=== PATIENT | female | born 2000 | race Caucasian/White ===

== ENCOUNTER → 2025-03-11 | Outpatient (CLI) | payer OTHER, SELFPAY ==
[2025-03-13 16:09] LABS: Immunoglobulin A 147 mg/dL (87-352); t-Transglutaminase IgA <2 U/mL (0-3)
== END | disposition home or self-care (01) ==
LOC: LAB 16:41
PROVIDERS: PCP Family Medicine; Referring Provider Nurse Practitioner Acute Care; Visit Provider Nurse Practitioner Acute Care
DX: R19.7 Diarrhea, unspecified (principal); K21.9 Gastro-esophageal reflux disease without esophagitis; R10.11 Right upper quadrant pain; R11.0 Nausea
CPT/HCPCS: 36415; 82784; 83516

== ENCOUNTER 2025-03-17 11:20 | Day surgery (SDC) | payer OTHER, SELFPAY ==
[2025-03-17] VITALS (7 sets, daily range): BP systolic 111–141; BP diastolic 65–99; PULSE 70–97; RESP 16–18; TEMP 36.3–36.6; O2SAT 94–100; BMI 48.6
--- NOTE | 2025-03-17 11:53 | HP.PCM_ITS ---
HPI - General General Date of Admission: 03/17/25 Date of Service: 03/17/25 HPI Narrative AUDIE NDIAYE, is a 24 F who presents for the evaluation of nausea and RUQ pain, diarrhea - upper abdominal pain, RUQ - nausea all the time - 100 days out form her wedding - for the past year, progressively getting worse, started with stomach discomfort, never really revolved around food - wakes in the morning with nausea, denies any emesis - RUQ pain be sharp, can radiate down - still has her GB - phenergan PRN - pepto all the time 2-6 pills a day - famotidine 20mg BID PRN - Omeprazole 40mg QD x2 months - no improvement - denies any weight loss, reports she has had weight gain - denies any dietary changes - MOM with GB disease - she has a BM multiple times a day - stools range from watery 5-6x a day to formed for the past year - denies any bleeding - urgency - denies any fecal incontinence - she was in [place] December 2023 - reports symptoms were much worse post - every one was hunched over diarrhea the last day - reports everyone elses symptoms cleared but hers did not - overall her symptoms are way better than what they were but has never subsided - denies any family h/o crohn's or colitis - denies any family h/o celiac disease [facility] Medical History Depression Heartburn Gastric reflux Former smoker Vertigo Anemia Home Medications ?Medication ?Instructions ?Recorded ?Last Taken ?Type famotidine 20 mg tablet 20 mg PO BID PRN gerd Unknown History norethindrone 1 mg-ethinyl 1 tab PO QDAY 03/10/25 Unkn own History estradiol 20 mcg (21)-iron 75 mg (7) tablet (Uma Fe 11/09 ()) promethazine 25 mg tablet 25 mg PO Q4-6H PRN nausea an d 03/10/25 Unknown History vomiting buspirone 5 mg tablet 5 mg PO DAILY 03/11/25 Unkno wn History rabeprazole 20 mg tablet,delayed 20 mg PO QDAY #90 tab s 03/11/25 Unknown Rx release Allergy/AdvReac Type Severity Reaction Status Date / Time Penicillins Allergy Severe Anaphylaxis Verified 03/12/25 14:57 Family History Mother Anemia Depression Social History Smoking Status: Former smoker alcohol intake: never substance use type: does not use caffeine: No what type of physical activity do you participate in: none ROS Constitutional Constitutional: Denies fatigue, fever(s), poor appetite, weight gain or weight loss Gastrointestinal Gastrointestinal: Denies belching, bloating, change in bowel habits, change in stool character, chewing difficulty, coffee ground emesis, constipation, cramping, diarrhea, dyspepsia, dysphagia, early satiety, excessive flatus, fecal incontinence, heartburn, hematemesis, hematochezia, hemorrhoids, loose stools, melena, nausea, odynophagia, rectal bleeding, tenesmus, vomiting or weight changes Physical Exam Const alert, oriented x3, no apparent distress and healthy appearing General Appearance: cooperative GI normal to inspection, nondistended, normoactive bowel sounds, soft to palpation, non-tender and non-distended Percussion: normal to percussion Rectal Exam: deferred Assessment & Plan Assessment/Plan (1) Nausea: (2) RUQ pain: (3) Diarrhea: (4) GERD (gastroesophageal reflux disease): PLAN: ROS Const Constitutional: Positive for fatigue and weight change (gain); No fever(s) ENT ENT: No difficulty swallowing Gastro GI: Positive for abdominal pain, change in bowel habits, diarrhea, heartburn and nausea/dyspepsia; No belching, bloating, change in stool character, coffee ground emesis, constipation, cramping, difficulty swallowing, feeling full early, excessive flatus, incontinent of stools, Vomiting blood/hematemesis, Blood in stool, loose stools, Black,tarry stools, pain with swallowing, vomiting or other Musc Musculoskeletal: No joint pain Skin Skin: No yellowing of the eye or itchy eyes Neuro Neurology: Positive for dizziness Psych Psychiatric: Positive for anxiety, Positive for depression, Positive for Compulsive Behavior and Positive for obsessions/compulsions Endo Endocrine: Positive for fatigue and weight change (gain) Aller/Imm Allergy/Immunologic: No itchy eyes Pedro Luis/Lymp Hematologic/Lymphatic: No easy bleeding or easy bruising Exam Const General: cooperative, healthy appearing, no acute distress and well developed Nutritional Appearance: well nourished and obese morbidly obese Orientation: alert and oriented x3 HENMT Head: normocephalic Ears: hearing grossly normal bilaterally Mouth: moist mucous membranes Teeth and gingiva: dentition normal Eyes Conjunctivae: conjunctivae normal Sclera: sclerae normal Neck Neck: normal visual inspection, full ROM and trachea midline Resp Effort & Inspection: normal respiratory effort, able to speak in complete sentences and symmetric chest movement Auscultation: Bilateral: Clear to Auscultation Cardio Palpation: normal PMI Rate: regular rate Rhythm: regular rhythm Heart Sounds: S1 normal and S2 normal GI Inspection: normal to inspection Auscultation: normal bowel sounds Palpation: soft and no hepatosplenomegaly Rectal Exam: deferred Skin General: no rashes or lesions noted and turgor normal Neuro General: patient alert and patient oriented x3 Cranial Nerves: other (CN's grossly intact, non-focal exam) Cognition: normal cognition Speech: speech normal Gait: normal gait Extrem General: normal to inspection (no edema noted) Psych Appearance: grossly normal and well kempt Affect: normal affect Attitude: cooperative Thought Process: normal Assessment and Plan Assessment and Plan (1) GERD (gastroesophageal reflux disease): Status: Acute (2) Diarrhea: Status: Acute (3) RUQ pain: Status: Acute (4) Nausea: Status: Acute Orders: Orders Immunoglobulin A Today K21.9 - Gastro-esophageal reflux disease without esophagitis, R10.11 - Right upper quadrant pain, R11.0 - Nausea, R19.7 - Diarrhea, unspecified t-Transglutaminase IgA Today K21.9 - Gastro-esophageal reflux disease without esophagitis, R10.11 - Right upper quadrant pain, R11.0 - Nausea, R19.7 - Diarrhea, unspecified Medications: New rabeprazole 20 mg PO QDAY 90 tabs 1RF Discontinued omeprazole Discontinued Reason: Order Changed 40 mg PO QDAY Plan 24y/o female presents for initial consultation with complaints of RUQ abdominal pain, nausea and diarrhea x1 year. She reports symptoms began after traveling to [place] December 2023 and have progressively worsened. She denies any improvement in symptoms with Omeprazole daily. She is also taking Phenergan PRN and 2-6 Pepto Chewables daily. I have ordered stool testing, labs, ABD US and scheduled her for an EGD. She will start a daily probiotic and trial Rabeprazole in place of Omeprazole. She will follow-up in the office in 3 weeks. - consider treatment with Xifaxan if stool testing is unremarkable Note: YesPlz! speech recognition development and planning engineer software was used to create portions of this document. Sound-alike and misspelled words, as well as other development and planning engineer errors may be contained in the documentation. Patient Instructions: EGD Complete labs today Florastor probiotic twice a day - available over the counter Discontinuing Omeprazole Start Rabeprazole, once a day in the morning 30 minutes before first meal - RX sent to pharmacy Abdominal Ultrasound - call [phone] to schedule Complete stool testing [facility] [employer] testing kit provided Decrease use of Pepto Follow-up in office in 3 weeks Plan Details
[2025-03-17 12:13] LABS: Internal QC Validated? YES +Cl - CLEAR BKGD; Pregnancy, Urine Negative Negative
[2025-03-17] MEDS: Lactated Ringers 1,000 ML 15 ML IV (12:21)
--- NOTE | 2025-03-17 12:40 | PRE.ANES_ITS ---
ASA Classification* ASA Classification ASA Classification: 3 Assessment & Plan Anesthesia* Anesthesia Assessment Anesthesia Assessment: Discussed sedation and/or anesthesia options, risks, benefits, and alternatives with patient/parents/legal guardian/POA. Questions invited. The patient/parents/legal guardian/POA seems to understand and agrees to proceed with anesthesia plan. Reviewed the physical assessment, medical history, allergy history and patient home medications list prior to surgery/procedure/anesthetic and documented any changes. Performed airway and anesthesia risk assessments. Anesthesia Type Anesthesia Type: MAC History Source History Obtained from:: Patient and Chart Anesthesia Focused Assessment* Temperature: 97.3 F Pulse Rate: 70 Blood Pressure: 141/99 Respiratory Rate: 16 Pulse Ox: 100 Oxygen Delivery Method: Room Air Airway Assessment Mouth opens: >3 cm Mallampati Score: I Teeth Condition: Intact Neck Range of motion (ROM): Full ROM Focused Labs Anesthesia Preop lab: CBC CHEMISTRY TSH 1.62 uIU/mL (0.358-3.74) 09/25/17 15:17 COAG HCG, Quant < 1 mIU/mL (<9 non-preg) 09/25/17 15:17 Urine Test Negative Negative 03/17/25 12:00 03/17/25 Pre-Assessment Diagnosis/Proposed Procedure Planned Operative Procedure(s): egd Anesthesia History Anesthesia History - endocrinology specialist: Anesthesia History - endocrinology specialist Hx Hospitalization No 03/12/25 15:00 Any Problems With Anesthesia No 03/12/25 15:00 Cholinesterase deficiency No 03/12/25 15:00 You/Your Family Experience No 03/12/25 15:00 fever (hyperthermia) with Relationship Recent Exposure to Contagious No 03/17/25 12:06 Disease Does patient have nerve No 03/12/25 15:00 stimulator Patient instructed to have device shut off --Does patient have Pacemaker No 03/17/25 12:06 or ICD? When Was Last Pacemaker Check QUESTION #4 FULL TEXT: You/Your Family Experience fever (hyperthermia) with Anesthesia Last Oral Intake Last Oral intake: Last Oral Intake NPO since 18:00 03/17/25 12:06 Meds taken in AM with sips of water? Meds patient instructed to take am of surgery PONV PONV - endocrinology specialist: PONV - endocrinology specialist Female Yes 03/12/25 15:00 HX of Motion Sickness Yes 03/12/25 15:00 HX of N/V After Surgery No 03/12/25 15:00 Non-Smoker Yes 03/12/25 15:00 Duration of Surgery greater No 03/12/25 15:00 than 60 minutes Number of Risk Factors 3 03/12/25 15:00 PONV Score Moderate Risk 03/12/25 15:00 Height & Weight Height & Weight: Anesthesia: Height & Weight Height 5 ft 1 in 03/17/25 12:06 Weight: 116.8 kg 03/17/25 12:06 Body Mass Index (BMI) 48.6 03/17/25 12:06 Respiratory Assessment Respiratory Assessment - endocrinology specialist: Respiratory Tract Infection Hx - endocrinology specialist Hx Respiratory Tract Infection No 03/12/25 15:00 STOP Sleep Apnea STOP Sleep Apnea - endocrinology specialist: STOP Sleep Apnea - endocrinology specialist Hx Hypertension No 03/12/25 15:00 Hx Sleep Apnea No 03/12/25 15:00 CPAP BIPAP Do you snore loudly (louder No 03/12/25 15:00 than talking or can be heard Do you often feel tired/ No 03/12/25 15:00 fatigued/ sleepy during daytime? Has anyone observed you stop No 03/12/25 15:00 breathing during sleep? STOP Results Negative 03/12/25 15:00 QUESTION #5 FULL TEXT : Do you snore loudly (louder than talking or can be heard through closed doors)? 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 Specify any problems Hx of Preganancy in last 3 N/A 03/12/25 15:00 Months Nurse Filling Out Transfusion NBUCHER 03/12/25 15:00 & Questions: Date: 03/12/25 03/12/25 15:00 Time: 15:00 03/12/25 15:00 Patient unable to answer at this time (ie. confused, unrespo /Reproduction History /Reproductive History - endocrinology specialist: /Reproductive Hx- endocrinology specialist Hx Now No 03/12/25 15:00 Gestational Age (in weeks): EDC: Hx Hx Para Hx Section SAB No 03/12/25 15:00 Active Medications Active Medications: Current Medications Generic Name Dose Route Start Last Admin Trade Name Freq PRN Reason Stop Dose Admin Lactated Ringer's 1,000 mls @ 15 mls/hr 03/17/25 12:00 03/17/25 12:21 IV 15 mls/hr .Q48H BNENY Administration PFSH Medical History Depression Heartburn Gastric reflux Former smoker Vertigo Anemia Home Medications ?Medication ?Instructions ?Recorded ?Last Taken ?Type famotidine 20 mg tablet 20 mg PO BID PRN gerd Unknown History norethindrone 1 mg-ethinyl 1 tab PO QDAY 03/10/25 Unkn own History estradiol 20 mcg (21)-iron 75 mg (7) tablet (Uma Fe 11/09 ()) promethazine 25 mg tablet 25 mg PO Q4-6H PRN nausea an d 03/10/25 Unknown History vomiting buspirone 5 mg tablet 5 mg PO DAILY 03/11/25 Unkno wn History rabeprazole 20 mg tablet,delayed 20 mg PO QDAY #90 tab s 03/11/25 Unknown Rx release Allergy/AdvReac Type Severity Reaction Status Date / Time Penicillins Allergy Severe Anaphylaxis Verified 03/17/25 12:03 Family History Mother Anemia Depression Social History Smoking Status: Former smoker alcohol intake: never substance use type: does not use caffeine: No what type of physical activity do you participate in: none Review of Systems (Anesthesia) ROS Narrative System reviewed and no additional complaints, except as documented.
--- NOTE | 2025-03-17 12:45 | EGD_PTH ---
PATIENT: AUDIE NDIAYE LOC: EN U#:[id number] AGE/SX: 24/F ROOM: RE03/17/[address]: Dr. Matthew Tovar DO : 2000 BED: DIS: 03/17/2025 SPEC #: [id number] RECD: 03/17/25 14:30 STATUS: RADU ELIAS #: [id number] SAPPHIRE: 03/17/25 12:[address]: Matthew Tovar DEPT: SURGICAL PATHOLOGY RECD BY: Trever Packer ENTERED: 03/17/25 15:07 SP TYPE: EGD BIOPSY OT DR: Cee Coburn PA-C Tissues: A - Duodenum, NOS B - Gastric mucous membrane C - Esophagus, NOS Procedures: Immunohistochemical Stains Surgery Specimen Level IV HEADER OPERATION: EGD with biopsy PRE-OP DIAGNOSIS: Nausea, right upper quadrant pain, diarrhea, GERD TISSUE SUBMITTED: A- Duodenum biopsy, B- Gastric body biopsy, C- Distal esophagus biopsy MICROSCOPIC DIAGNOSIS A. Small bowel, duodenum, biopsy: Normal villous architecture with Nnamdi gland hyperplasia. Negative for increased intraepithelial lymphocytes. B. Stomach, gastric body, biopsy: Oxyntic mucosa with mild chronic inflammation. IHC negative for H.pylori organisms. C. Esophagus, distal, biopsy: Squamous mucosa with reactive changes. Columnar mucosa negative for goblet cell metaplasia. MICROSCOPIC DESCRIPTION Slides are reviewed. GROSS DESCRIPTION A. Received in formalin in a container labeled with the patient's name, date of , and duodenum biopsy are 2 martinez-pink fragments of mucosal tissue measuring 0.3 x 0.3 x 0.3 cm and 0.7 x 0.2 x 0.2 cm. Submitted in toto in A1. B. Received in formalin in a container labeled with the patient's name, date of , and gastric body biopsy for H. pylori and path are 2 martinez-pink strips of mucosal tissue, each measuring 0.7 x 0.2 x 0.2 cm. Submitted in toto in B1. C. Received in formalin in a container labeled with the patient's name, date of , and distal esophagus biopsy are 2 martinez-pink fragments of mucosal tissue, each measuring 0.4 x 0.2 x 0.2 cm. Submitted in toto in C1. [facility] 03-17-2025 CPT:94881n9,[id number]
--- NOTE | 2025-03-17 13:30 | PCM.POST.ANE ---
Anesthesia: Postop Eval I Current Vital Signs Temperature: 97.9 F Pulse Rate: 88 Blood Pressure: 136/79 Respiratory Rate: 18 Pulse Ox: 99 Oxygen Delivery Method: Room Air Assessment Airway patent: Yes Spontaneous unlabored respirations: Yes Mental status: Awake nausea: No Vomiting: No Anesthesia Complication: No Fluid Hydration Crystalloid volume administer (ml): 400 Total IV fluid infused: 400 Progress Note Anesthesia document: Postop Eval 1 completed: Yes
--- NOTE | 2025-03-17 13:33 | OP.EGD_ITS ---
Patient Name: Jazmin Davidson Procedure Date: 03/17/2025 1:00 PM Date of : 2000 Age: 24 Procedure: Upper GI endoscopy Indications: Epigastric abdominal pain, Functional Dyspepsia, Suspected esophageal reflux Providers: Matthew Tovar DO Referring MD: Cee Coburn Medicines: Monitored Anesthesia Care Patient Profile: This is a 24 year old female. Refer to note in patient chart for documentation of history and physical. Patient has symptoms of chronic abdominal cramping, chronic abdominal distention, chronic epigastric abdominal pain, acute dyspepsia and chronic nausea. Complications: No immediate complications. Procedure: Pre-Anesthesia Assessment: - Prior to the procedure, a History and Physical was performed, and patient medications and allergies were reviewed. The patient is competent. The risks and benefits of the procedure and the sedation options and risks were discussed with the patient. All questions were answered and informed consent was obtained. Patient identification and proposed procedure were verified by the physician in the pre-procedure area. Mental Status Examination: alert and oriented. Airway Examination: normal oropharyngeal airway and neck mobility. Respiratory Examination: clear to auscultation. CV Examination: normal. Prophylactic Antibiotics: The patient does not require prophylactic antibiotics. Prior Anticoagulants: The patient has taken no anticoagulant or antiplatelet agents except for NSAID medication. ASA Grade Assessment: II - A patient with mild systemic disease. After reviewing the risks and benefits, the patient was deemed in satisfactory condition to undergo the procedure. The anesthesia plan was to use monitored anesthesia care (MAC). Immediately prior to administration of medications, the patient was re-assessed for adequacy to receive sedatives. The heart rate, respiratory rate, oxygen saturations, blood pressure, adequacy of pulmonary ventilation, and response to care were monitored throughout the procedure. The physical status of the patient was re-assessed after the procedure. After obtaining informed consent, the endoscope was passed under direct vision. Throughout the procedure, the patient's blood pressure, pulse, and oxygen saturations were monitored continuously. The Endoscope was introduced through the mouth, and advanced to the third part of the duodenum. Small bowel enteroscopy was deemed necessary. The upper GI endoscopy was accomplished without difficulty. The patient tolerated the procedure well. Scope In: 1:12:01 PM Scope Out: 1:16:20 PM Total Procedure Duration Time 0 hours 4 minutes 19 seconds Findings: The Z-line was regular and was found 38 cm from the incisors. Biopsies were taken with a cold forceps for histology. Verification of patient identification for the specimen was done. Estimated blood loss was minimal. Localized mild inflammation characterized by congestion (edema), erosions and erythema was found in the gastric body. Biopsies were taken with a cold forceps for histology. Verification of patient identification for the specimen was done. Biopsies were taken with a cold forceps for Helicobacter pylori testing. Verification of patient identification for the specimen was done. Estimated blood loss was minimal. Diffuse mildly erythematous mucosa without active bleeding and with no stigmata of bleeding was found in the entire duodenum. Biopsies were taken with a cold forceps for histology. Verification of patient identification for the specimen was done. Impression: - Z-line regular, 38 cm from the incisors. Biopsied. - Chronic gastritis. Biopsied. - Erythematous duodenopathy. Biopsied. Recommendation: - Resume previous diet. - Continue present medications. Procedure Code(s): --- Professional --- 05814, Small intestinal endoscopy, enteroscopy beyond second portion of duodenum, not including ileum; with biopsy, single or multiple CPT copyright 2021 [employer]. All rights reserved. The codes documented in this report are preliminary and upon certified medical records coder review may be revised to meet current compliance requirements. Matthew Tovar DO 03/17/2025 1:32:45 PM This report has been signed electronically. Number of Addenda: 0 Note Initiated On: 03/17/2025 1:00 PM
--- NOTE | 2025-03-17 13:33 | OP.CCLET_ITS ---
03/17/2025 Cee Hills Re : Upper GI endoscopy procedure for Jazmin Coburn This procedure was performed on Monday, March 17, 2025. My impressions and recommendations are as follows: Impressions : - Z-line regular, 38 cm from the incisors. Biopsied. - Chronic gastritis. Biopsied. - Erythematous duodenopathy. Biopsied. Recommendations : - Resume previous diet. - Continue present medications. My findings are described in the full procedure note, which is enclosed. If I can be of further assistance, please feel free to contact me at . Sincerely, Matthew Tovar, 03/17/2025 1:32:45 PM This report has been signed electronically.
--- NOTE | 2025-03-17 15:08 | PCM.POSTANE2 ---
Anesthesia Postop Eval I Sum Postop Eval Completion status Anesthesia document: Postop Eval 1 completed: Yes Anesthesia Postop Eval I Summary Anesthesia Postop Eval I Summary: Anesthesia Postop Eval I: Assessment Summary Airway patent Yes 03/17/25 13:31 [email or web address] Spontaneous unlabored Yes 03/17/25 13:31 [email or web address] respirations Mental status Awake 03/17/25 13:31 [email or web address] nausea No 03/17/25 13:31 [email or web address] Vomiting No 03/17/25 13:31 [email or web address] Anesthesia Postop Eval I: Fluid Summary Crystalloid volume administer 400 03/17/25 13:31 [email or web address] (ml) Colloids volume administered ( ml) Blood Product volume administered (ml) Total IV fluid infused 400 03/17/25 13:31 [email or web address] Anesthesia Postop Eval I: Summary Notes Anesthesia Complication No 03/17/25 13:31 [email or web address] Anesthesia Complication Comment: Post-operative progress note Anesthesia: Postop Eval II Evaluation Mental status: Awake Pain Level: 0 nausea: No Vomiting: No
== END 2025-03-17 14:11 | disposition home or self-care (01) ==
LOC: EN 11:20 → AC 11:22
PROVIDERS: Anesthesiology; PCP Family Medicine; Referring Provider Family Medicine; Visit Provider Internal Medicine Gastroenterology
PROC: 0DJ08ZZ Inspection of Upper Intestinal Tract, Via Natural or Artificial Opening Endoscopic (ICD-10-PCS; CPT 43235; principal; 2025-03-17 12:40)
DX: K29.50 Unspecified chronic gastritis without bleeding (principal); K21.9 Gastro-esophageal reflux disease without esophagitis; Z87.891 Personal history of nicotine dependence; R19.7 Diarrhea, unspecified; Z79.899 Other long term (current) drug therapy; K25.9 Gastric ulcer, unspecified as acute or chronic, without hemorrhage or perforation; K31.89 Other diseases of stomach and duodenum
CPT/HCPCS: 43239; 81025; 88305; 88342; J2405

== ENCOUNTER → 2025-03-18 | Outpatient (CLI) | payer OTHER, SELFPAY ==
--- NOTE | 2025-03-18 08:43 | US_ITS ---
PROCEDURE: ABDOMEN LIMITED 03/18/2025 REASON FOR EXAM: RUQ PAIN, NAUSEA TECHNIQUE: Complete abdominal ultrasound shah-scale images with color doppler. PATIENT PREPARATION: Per protocol COMPARISON: None FINDINGS: Liver: Diffusely echogenic suggesting fatty infiltration. Borderline hepatomegaly. The liver measures 17.6 cm. Gallbladder: No stones, sludge, wall thickening or tenderness. Common bile duct: Normal measuring 1.8 mm . Pancreas: Visualized portions are unremarkable. The distal body and tail are obscured by bowel gas. Kidneys: The right kidney measures 11.8 cm 6 cm 4.6 cm renal cortex measures 1.4 cm.. Peritoneal Findings: None US/Abdomen Limited IMPRESSION: Fatty infiltration of the liver and borderline hepatomegaly. Reading Location: [id number]
== END | disposition home or self-care (01) ==
PROVIDERS: PCP Family Medicine; Referring Provider Nurse Practitioner Acute Care; Visit Provider Nurse Practitioner Acute Care
DX: R10.11 Right upper quadrant pain (principal); R11.0 Nausea
CPT/HCPCS: 76705

== ENCOUNTER → 2025-07-01 | Outpatient (CLI) | payer OTHER, SELFPAY ==
[2025-07-01 14:21] LABS: Hematocrit 36.3 % (37-47); Hemoglobin 11.2 g/dL (12.0-15.0); Immature Granulocytes Count 0.040 X10^3/uL (0.0-0.0); Mean Corp Hgb Conc 30.9 g/dL (32-36); Mean Corpuscular Volume 78.1 fL (81-99); Mean Platelet Vol. 9.8 fl (6.2-12.0); NRBC Flagged by Analyzer 0 % (0-5); Platelet Count 463 K/mm3 (150-450); RBC Distribution Width CV 15.3 % (11.6-14.6); RBC Distribution Width SD 42.9 fl (35.1-43.9); Red Blood Count 4.65 M/mm3 (4.2-5.4); White Blood Count 13.0 K/mm3 (4.4-11.0)
[2025-07-01 14:29] LABS: Prothrombin Time (Protime)PT. 12.1 SECONDS (11.7-14.9)
[2025-07-01 14:53] LABS: Internal QC Validated? YES +Cl - CLEAR BKGD; Pregnancy, Serum, hCG Quali. NEGATIVE Negative; Record Kit Lot#, Serum Preg. 964736
[2025-07-01 15:25] LABS: Albumin, Serum 4.5 g/dL (3.5-5.0); BUN 9 mg/dL (4-19); BUN/Creat Ratio 13.5 RATIO (10-20); Globulin 3.8 g/dL (2.2-4.2); Glucose 88 mg/dL (70-99)
[2025-07-01 15:26] LABS: AST(SGOT) 21 U/L (<=31); Alanine Aminotransfer ALT/SGPT 21 U/L (<=34); Alkaline Phosphatase 97 U/L (35-104); Anion Gap 15 (5-15); Calcium,Total 9.9 mg/dL (7.6-11.0); Carbon Dioxide 23.7 mmol/L (21.0-32.0); Chloride 101 mmol/L (98-108); Hepatitis B Surface Antigen Nonreactive (Nonreactive); Hepatitis C Antibody Nonreactive (Nonreactive); Potassium 4.4 mmol/L (3.3-5.1)
== END | disposition home or self-care (01) ==
LOC: LAB 13:43
PROVIDERS: PCP Family Medicine; Referring Provider Nurse Practitioner Acute Care; Visit Provider Nurse Practitioner Acute Care
DX: R10.11 Right upper quadrant pain (principal); E28.2 Polycystic ovarian syndrome; K76.0 Fatty (change of) liver, not elsewhere classified; N92.6 Irregular menstruation, unspecified
CPT/HCPCS: 36415; 80053; 83036; 84443; 84703; 85025; 85610; 86704; 86706; 86708; 86803; 87340